=== PATIENT | male | born 1965 | race Caucasian/White ===

== ENCOUNTER 2020-11-29 05:57 | Day surgery (SDC) | payer BC, OTHER ==
[~2020-11-29 05:57] MED LIST: Lactated Ringers 1,000 ML IV SCH; Lidocaine 1%/Sod Bicarbonate in NS 8.4% 1 ML Syringe IDERM PRN; Scopolamine 1.5 MG Transdermal Patch TRDERM PRN; Sodium Chloride 0.9% 10 ML Syringe FLUSH PRN
[2020-11-29] MEDS ORDERED: Acetaminophen 325 MG Tab PO SCH (06:00)
[2020-11-29] MEDS ORDERED: Morphine 8 MG, EPINEPHrine 0.3 MG, Cefuroxime 750 MG, Ketorolac 30 MG, Sodium Chloride ... PRN ×5 (06:00)
[2020-11-29] MEDS ORDERED: oxyCODONE ER 10 MG TAB.ER PO SCH (06:00)
[2020-11-29] MEDS ORDERED: Pregabalin 25 MG Cap PO SCH (06:00)
[2020-11-29] MEDS ORDERED: Bupivacaine 0.25% 10 ML SDV ONE (06:28)
[2020-11-29] MEDS ORDERED: Vancomycin 1 GM SDV ONE (06:28)
--- NOTE | 2020-11-29 06:37 | PCM.PREANE ---
Preanesthetic Assessment - Anesthesia/Transfusion/Family Hx Anesthesia History: Prior Anesthesia Without Reaction Family History of Anesthesia Reaction: No Transfusion History: No Prior Transfusion(s) Intubation History: Unknown - Review of Systems General: No Symptoms Pulmonary: Shortness of Breath ("normal for me") Cardiovascular: Dyspnea on Exertion Gastrointestinal: No Symptoms Neurological: Numbness (in right leg), Difficulty Walking (from knee pain ), Weakness (in knee) Other: Reports: Neck Pain (stiff from sleeping) - Physical Assessment Vital Signs: Last Vital Signs Temp 36.7 C 11/29/20 05:50 Pulse 83 11/29/20 05:50 Resp 16 11/29/20 05:50 BP 145/94 H 11/29/20 05:50 Pulse Ox 96 11/29/20 05:50 Height: 1.83 m Weight: 120.656 kg ASA Class: 3 Mental Status: Alert & Oriented x3 Airway Class: Mallampati = 1 Dentition: Reports: Dentures, Partial, Missing Tooth/Teeth (front) Thyro-Mental Finger Breadths: 3 Mouth Opening Finger Breadths: 2 ROM/Head Extension: Full Lungs: Clear to Auscultation, Normal Respiratory Effort Cardiovascular: Regular Rate, Regular Rhythm - Lab Values: Laboratory Last Values SARS-CoV-2 RNA ([facility]BERTO) Negative (NEGATIVE) 11/28/20 18:10 MRSA (PCR) Negative 11/17/20 13:07 - Imaging/EKG Impressions: EKG SR rate 72 - Allergies Allergies/Adverse Reactions: Allergies Allergy/AdvReac Type Severity Reaction Status Date / Time No Known Allergies Allergy Verified 11/25/20 13:32 - Blood Blood Available: No Product(s) Available: None - Anesthesia Plan Pre-Op Medication Ordered: None - Acknowledgements Anesthesia Type Planned: Spinal Pt an Appropriate Candidate for the Planned Anesthesia: Yes Alternatives and Risks of Anesthesia Discussed w Pt/Guardian: Yes Pt/Guardian Understands and Agrees with Anesthesia Plan: Yes PreAnesthesia Questionnaire HEENT History: Reports: Impaired Vision, Other (See Below) Other HEENT History: wears glasses, has dentures Cardiovascular History: Reports: High Cholesterol, Hypertension Respiratory History: Reports: SOB Gastrointestinal History: Reports: Colon Polyp, Other (See Below) Other Gastrointestinal History: heartburn after surgery, tubulovillous adenoma of large intestine Genitourinary History: Reports: None CONTINUOUS MINER History: Reports: None Musculoskeletal History: Reports: Arthritis, Fracture, Gout, Osteoarthritis Other Musculoskeletal History: arthritis to rt knee, Neurological History: Reports: Vertigo Psychiatric History: Reports: Other (See Below) Other Psychiatric History: fatigue Endocrine/Metabolic History: Reports: Obesity/BMI 30+ Hematologic History: Reports: Other (See Below) Other Hematologic History: hypokalemia Immunologic History: Reports: None Oncologic (Cancer) History: Reports: None Dermatologic History: Reports: Other (See Below) Other Dermatologic History: contact dermatitis - Infectious Disease History Infectious Disease History: Reports: Chicken Pox - Past Surgical History Head Surgeries/Procedures: Reports: None HEENT Surgical History: Reports: None Cardiovascular Surgical History: Reports: None Respiratory Surgical History: Reports: None GI Surgical History: Reports: None Female Surgical History: Reports: None Male Surgical History: Reports: None Endocrine Surgical History: Reports: None Neurological Surgical History: Reports: None Musculoskeletal Surgical History: Reports: ORIF, Other (See Below) Other Musculoskeletal Surgeries/Procedures:: surgical tx for fx left ankle, left thumb surgery with tendon repair, right total knee replacement Oncologic Surgical History: Reports: None Dermatological Surgical History: Reports: None - SUBSTANCE USE Tobacco Use Status *Q: Former Tobacco User Tobacco Use Within Last Twelve Months: No Second Hand Smoke Exposure: No Days Per Week of Alcohol Use: 0 Number of Drinks Per Day: 0 Total Drinks Per Week: 0 Recreational Drug Use History: No - HOME MEDS Home Medications: Home Meds Allopurinol [Zyloprim] 100 mg PO DAILY 04/23/17 [History] Hydrochlorothiazide 25 mg PO DAILY 04/23/17 [History] Simvastatin [Zocor] 20 mg PO DAILY 04/23/17 [History] amLODIPine Besylate [Amlodipine Besylate] 10 mg PO DAILY 04/23/17 [History] Cholecalciferol (Vitamin D3) [Vitamin D3] 5,000 unit PO DAILY 11/25/20 [History] Multivitamin [Daily Nasir] 1 tab PO DAILY 11/25/20 [History] Aspirin [Aspirin EC] 325 mg PO BID #84 tab 11/29/20 [Rx] Cyclobenzaprine [Flexeril] 10 mg PO BID PRN #20 tab 11/29/20 [Rx] oxyCODONE 5 - 10 mg PO Q4H PRN #40 tab 02/01/21 [Rx] - CURRENT (IN HOUSE) MEDS Current Meds: Current Medications Acetaminophen (Tylenol) 975 mg PO ONETIME ANDREI Stop: 11/29/20 16:00 Last Admin: 11/29/20 06:03 Dose: 975 mg Documented by: Morphine Sulfate 8 mg/Epinephrine HCl 0.3 mg/Cefuroxime Sodium 750 mg/Ketorolac Tromethamine 30 mg/Sodium Chloride 7.9 ml 0 mg .XX ASDIRECTED PRN PRN Reason: Pain Stop: 11/29/20 23:00 Lactated Ringer's (Ringers, Lactated) 1,000 mls @ 125 mls/hr IV ASDIRECTED ANDREI Stop: 11/29/20 23:00 Last Admin: 11/29/20 06:08 Dose: 125 mls/hr Documented by: Lidocaine/Sodium Bicarbonate (Buffered Lidocaine 1% In Ns 8.4%) 0.25 ml IDERM ONETIME PRN PRN Reason: Prior to IV Start Stop: 11/29/20 18:00 Last Admin: 11/29/20 06:08 Dose: 0.25 ml Documented by: Oxycodone HCl (Oxycontin) 10 mg PO ONETIME ANDREI Stop: 11/29/20 12:00 Last Admin: 11/29/20 06:03 Dose: 10 mg Documented by: Pregabalin (Lyrica) 50 mg PO ONETIME ANDREI Stop: 11/29/20 16:00 Last Admin: 11/29/20 06:03 Dose: 50 mg Documented by: Scopolamine (Transderm-Scop) 1.5 mg TRDERM ONETIME PRN PRN Reason: History of Vertigo. Stop: 11/29/20 16:00 Sodium Chloride (Saline Flush) 10 ml FLUSH ASDIRECTED PRN PRN Reason: Keep Vein Open Stop: 11/29/20 18:00 Discontinued Medications Bupivacaine HCl (Sensorcaine-Mpf 0.25%) Confirm Administered Dose 30 ml .ROUTE .STK-MED ONE Stop: 11/29/20 06:29 Tranexamic Acid (Cyklokapron) Confirm Administered Dose 1,000 mg .ROUTE .STK-MED ONE Stop: 11/29/20 06:29 Vancomycin HCl (Vancomycin) Confirm Administered Dose 1 gm .ROUTE .STK-MED ONE Stop: 11/29/20 06:29
[2020-11-29] MEDS ORDERED: Ondansetron 4 MG/2 ML SDV ONE (06:46)
[2020-11-29] MEDS ORDERED: Lidocaine 1% 4 ML ONE (06:47)
[2020-11-29] MEDS ORDERED: Midazolam 1 MG/ML 2 ML SDV ONE (06:47)
[2020-11-29] MEDS ORDERED: fentaNYL 100 MCG/2 ML SDV ONE (06:47)
[2020-11-29] MEDS ORDERED: ceFAZolin 1 GM Vial ONE (06:47)
[2020-11-29] MEDS ORDERED: Propofol 200 MG/20 ML SDV ONE ×4 (06:47→08:44)
[2020-11-29] MEDS ORDERED: Lactated Ringers 1,000 ML ONE (07:40)
[2020-11-29] MEDS ORDERED: Ropivacaine 0.5% 5 MG/ML 30 ML SDV ONE (08:36)
[2020-11-29] MEDS ORDERED: EPINEPHrine 1 MG/ML SDV ONE (08:36)
[2020-11-29] MEDS ORDERED: fentaNYL 100 MCG/2 ML SDV IVPUSH PRN (09:29)
--- NOTE | 2020-11-29 09:30 | PCM.POSTAN ---
POST ANESTHESIA ASSESSMENT - MENTAL STATUS Mental Status: Alert, Oriented - VITAL SIGNS Vital Signs: Last Vital Signs Temp 36.7 C 11/29/20 05:50 Pulse 83 11/29/20 05:50 Resp 16 11/29/20 05:50 BP 145/94 H 11/29/20 05:50 Pulse Ox 96 11/29/20 05:50 - RESPIRATORY Respiratory Status: Respiratory Rate WNL, Airway Patent, O2 Saturation Stable, Supplemental Oxygen - CARDIOVASCULAR CV Status: Pulse Rate WNL, Blood Pressure Stable - GASTROINTESTINAL GI Status: No Symptoms - PAIN Pain Score: 0 - POST OP HYDRATION Hydration Status: Adequate & Stable - OBSERVATIONS Free Text/Narrative:: no anesthesia complications noted
--- NOTE | 2020-11-29 09:52 | PCM.SN.2 ---
- Free Text/Narrative Note: Right selective femoral nerve block at the adductor canal for post-procedure pain control Time Out: 931 Start: 931 End: 938 Chart reviewed. Consent signed. Questions answered. Appropriate monitors applied. Time out performed. Right mid-shaft femur evaluated with ultrasound. Scanning medially femur, I was able to identify the femoral artery in the adductor canal. The saphenous nerve was lateral to the artery. The skin was prepped lateral to the ultrasound probe with chlorahexadine. 2 ml of 1% lidocaine was used for skin injection. The 21ga 4 insulated block needle was inserted under direct ultrasound guidance into the adductor canal. 25mL of 0.5% ropivacaine with 1:200,000 epinephrine was injected circumferentially about the nerve with intermittent negative aspiration every 5mL. Patient tolerated the procedure well. No complications noted. See pictures on progress note and vital signs on nurses notes. Block completed postoperatively. Paulo Horn CRNA
--- NOTE | 2020-11-29 10:15 | CR ---
Right knee: AP and crosstable lateral views of the right knee were obtained. Comparison: No previous study. Knee prosthesis is noted. Components are aligned. Soft tissue air is noted from the surgical procedure. No acute bony abnormality is appreciated. Impression: 1. Satisfactory postop radiographic appearance of recently placed right knee prosthesis. Diagnostic code #2
[2020-11-29] MEDS ORDERED: Ketorolac 30 MG/ML SDV IVPUSH ONE (10:30)
--- NOTE | 2020-11-29 10:58 | PCM48HPAN ---
Post Anesthesia Note - EVALUATION WITHIN 48HRS OF ANESTHETIC Vital Signs in Normal Range: Yes Patient Participated in Evaluation: Yes Respiratory Function Stable: Yes Airway Patent: Yes Cardiovascular Function Stable: Yes Hydration Status Stable: Yes Pain Control Satisfactory: Yes Nausea and Vomiting Control Satisfactory: Yes Mental Status Recovered: Yes Vital Signs: Last Vital Signs Temp 36.7 C 11/29/20 10:32 Pulse 76 11/29/20 10:32 Resp 16 11/29/20 10:32 BP 131/72 11/29/20 10:32 Pulse Ox 96 11/29/20 10:32 - COMMENTS/OBSERVATIONS Free Text/Narrative:: no anesthesia complications noted
[2020-11-29 11:04] VITALS: PULSE 74
[2020-11-29] MEDS ORDERED: oxyCODONE 5 MG Tab PO SCH (11:05)
[2020-11-29] MEDS ORDERED: Cyclobenzaprine 10 MG Tab PO SCH (11:05)
[2020-11-29 11:56] VITALS: BP 121/74
--- NOTE | 2020-12-08 18:33 | PCM.OPNOTE ---
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
--- NOTE | 2020-12-09 10:01 | OR ---
DATE OF OPERATION: 11/29/2020 SURGEON: Jackson Mast MD OPERATION PERFORMED: Revision right total knee arthroplasty, all 3 components. PREOPERATIVE DIAGNOSIS: Painful right total knee arthroplasty with instability. POSTOPERATIVE DIAGNOSIS: Painful right total knee arthroplasty with instability. ANESTHESIA: Local MAC with spinal. ANESTHESIA PROVIDER: Paulo Horn CRNA and Patricia Abdullahi LPN. ESTIMATED BLOOD LOSS: 5 mL. COMPLICATIONS: None. CONDITION: Stable. IMPLANTS: 1. [place] size 7 TS femur. 2. [place] size 7 universal tibial baseplate. 3. [place] size C cone in the tibia. 4. [place] size 50 mm stems, both in the femur and the tibia. 5. [place] size 5 mm distal femoral medial augment. 6. [place] size 13 mm TS polyethylene insert. DESCRIPTION OF PROCEDURE: The patient was identified in the preoperative holding area. Proper site was marked and identified by the surgeon. The patient was taken back to the operative suite, where after adequate anesthesia, the patient's right lower extremity had a nonsterile tourniquet applied and it was then sterilely prepped and draped in the usual sterile fashion. OR time-out was performed. The patient received 2 g IV Ancef. Right lower extremity was exsanguinated. Tourniquet was insufflated to 250 mmHg. The previous incision was utilized and a medial parapatellar arthrotomy was created. Deep fibers of the MCL were raised and any scar tissue was resected around the patella as well as the lateral joint line. Retractors were then placed. The previous polyethylene liner was then removed. A reciprocating saw as well as a curved osteotome were then used for resection of the femoral component as well as the tibial component. There was almost no bone loss whatsoever. Excess cement that remained was removed at this time with the osteotome and a curette. Once it was completely removed, canal reamers were utilized in the tibia up to a 15. This was then left and 2 mm was resected off the previous resection of the tibia. It was found to be an adequate resection. The cone reamer was then utilized up to a size C cone. The size 7 base plate had adequate coverage, and at this time, it was placed in the proper rotation and was stamped and drilled in the proper rotation. Attention was turned to the femur. The trial cutting femoral guide for the TS femur was then placed. It was found that there was minimal resection off the lateral side with the 0 cut. I did have to do 5 mm augments on the distal femur and this cut was completed. Anterior femoral cut and the chamfer cuts were then completed at this time. I did trial with that in place and the patient was found to be stable throughout range of motion with no varus-valgus instability with a size 13 polyethylene with full extension and flexion with no signs of recurvatum. The trial implant on the femur was then removed after the box cut was completed. Cement was mixed on the back table. I was able to place the bone plug for 50 mm stems on both the femur and the tibia. Four batches of cement were mixed on the back table. Once this was completed, all the components were put together with this 5 mm distal femoral augment and the 50 mm stem on both the tibia and the femur. The size C cone was impacted into the tibia. Once the cement was ready, the size 7 base plate with the 50 mm stem was cemented into place. Then, the size 7 femur with the 50 mm stem was cemented into place. A 13 mm TS polyethylene was placed and the metal post was placed in the polyethylene. The patient's knee was brought into full extension. At this time, it was decided we would resect the previous patellar button off. It actually was removed rather easily and just completely fell off after I hit it with an osteotome. Drill holes were then drilled for a 38 x 10 mm patella and this was then cemented into place. A 1 L pulse lavage irrigation with Ancef was irrigated through the knee along with the Irrisept irrigation. Periarticular injection was completed. Topical tranexamic acid and vancomycin powder were applied. A #2 barbed suture was used for closure of the medial parapatellar arthrotomy. 2-0 Vicryl and StrataFix were used for closure of the subcutaneous layer and Prineo was used for the skin layer. The patient had a sterile soft dressing applied and sent to PACU in stable condition. MMODAL /[id number]
== END 2020-11-29 14:00 | disposition home or self-care (01) ==
LOC: JD.SDS 05:57
PROVIDERS: ATTEND Orthopaedic Surgery
DX: T84.84XA Pain due to internal orthopedic prosthetic devices, implants and grafts, initial encounter (principal); M25.361 Other instability, right knee; I10 Essential (primary) hypertension; E78.00 Pure hypercholesterolemia, unspecified; E66.9 Obesity, unspecified; Z01.812 Encounter for preprocedural laboratory examination; Z20.822 Contact with and (suspected) exposure to COVID-19; Z79.899 Other long term (current) drug therapy; Z87.891 Personal history of nicotine dependence; G89.18 Other acute postprocedural pain; Z68.36 Body mass index [BMI] 36.0-36.9, adult
CPT/HCPCS: 27487; 73560; 87635; 87641; 97116; 97161; A9270; C1713; C1776; J0171; J0690; J0697; J1885; J2250; J2270; J2405; J2704; J2795; J3010; J3370; J3490; J7120; 01402; 64450; 97165-GO; J2001; U0002